=== PATIENT | male | born 2000 | race Caucasian/White ===

== ENCOUNTER 2018-03-23 03:12 | Emergency (ER) | payer OTHER ==
[~2018-03-23] VITALS: Ht 182.9 cm; Wt 106.6 kg
[~2018-03-23 03:12] MED LIST: ALBU90OI INH; ALBU90OI61 INH; AMOX50SU PO; ATOM25 PO; ATOM60 PO; CODACEE120 PO; CODGUAEL PO; LORA10ER PO; MELA3 PO; METHYLPHENIDATE; MONT4 PO; MONT5TCH; Norco 5-325 Ta1 EACH PO; PROM25 PO; Zofran Odt4 MG SL
== END 2018-03-23 04:31 | disposition home or self-care (01) ==
LOC: ER 03:12
DX: S97.82XA Crushing injury of left foot, initial encounter (principal); W22.8XXA Striking against or struck by other objects, initial encounter
CPT/HCPCS: 73630; 99283-25